=== PATIENT | male | born 1995 | race Two or more races ===

== ENCOUNTER 2017-07-14 17:11 | Emergency (ER) | payer OTHER ==
[~2017-07-14] VITALS: Ht 193 cm; Wt 137.9 kg
--- NOTE | ~2017-07-14 | CR94 ---
[facility] A Service [facility] RADIOLOGY TEXT RESULTS PATIENT: ELOISE MOODY JR LOCATION: SED : 97 UNIT #: [id number] AGE: [address]: Rebeca Stapleton APRN SEX: M ORDER DR: [id number] [place] [id number] E MR#: [id number] Acc #: [id number] NAME: ELOISE MOODY JR : 1995 SEX: M STUDY DATE/TIME: 07/14/2017 17:39 UNIT: SED ROOM: STUDY DESCRIPTION: CR Elbow Min 3 Views Rt Attending Physician: Rebeca Stapleton A.P.R.N. Ordering Physician: Rebeca Salas A.P.R.N. Primary Care Physician: Primary Care Physician No MEDICAL IMAGING REPORT This report is preliminary unless electronic signature is present. EXAM Right elbow series dated 07/14/2017. COMPARISON None. HISTORY Pain in the right elbow for last few days. FINDINGS Three views of the right elbow were obtained. AP and lateral examination of the elbow shows satisfactory articulation of the humerus with the proximal radius and ulna. There is no identifiable fracture, dislocation, joint effusion, or radiopaque foreign body in the soft tissues. IMPRESSION Normal elbow. Dictated by... Minnie Guillen M.D. THIS IS AN ELECTRONICALLY VERIFIED REPORT Minnie Guillen M.D. at 07/17/2017 9:15 AM CPR/cmm TD: 07/15/2017 09:13 JOB #: [id number] [facility] A Service [facility] RADIOLOGY TEXT RESULTS PATIENT: ELOISE MOODY JR LOCATION: SED : 97 UNIT #: [id number] AGE: [address]: Rebeca Stapleton APRN SEX: M ORDER DR: MEDICAL IMAGING REPORT Page 1 of 1
[~2017-07-14 17:11] MED LIST: IBUPROFEN PO; MOTRIN400 MG PO; NO MEDICATIONS; TYLENOL #3 PO
[2017-07-14] MEDS ORDERED: VITAMIN D32000 UNIT (17:24)
[2017-07-14] MEDS ORDERED: METFORMIN PO (17:24)
[2017-07-14] MEDS ORDERED: CINNAMON BARK1 GM (17:25)
== END 2017-07-14 18:33 | disposition home or self-care (01) ==
LOC: SED 17:11
DX: S53.431A Radial collateral ligament sprain of right elbow, initial encounter (principal); E11.9 Type 2 diabetes mellitus without complications; F17.210 Nicotine dependence, cigarettes, uncomplicated; Z86.73 Personal history of transient ischemic attack (TIA), and cerebral infarction without residual deficits; Z79.899 Other long term (current) drug therapy; Z88.1 Allergy status to other antibiotic agents; X50.0XXA Overexertion from strenuous movement or load, initial encounter
CPT/HCPCS: 29260; 73080; 99283